=== PATIENT | female | born 2005 | race Caucasian/White ===

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

== ENCOUNTER 2024-02-14 10:39 | Observation (INO) | payer OTHER ==
[~2024-02-14] VITALS: Ht 162.6 cm; Wt 48.6 kg
[2024-02-14] MEDS ORDERED: ONDA-284 PO (10:49)
[2024-02-14] MEDS ORDERED: ARIP1TAB4 PO (10:49)
[2024-02-14] MEDS ORDERED: ACET1TAB55 PO (10:49)
[2024-02-14] MEDS ORDERED: BUPR150T12 PO (10:49)
[2024-02-14] MEDS ORDERED: LEXA1TAB2 PO (10:49)
[2024-02-14 11:51] LABS: BASO % 0.4 % (0.0-1.0); EOS # 0.1 10^3/uL (0.0-0.5); EOS % 1.1 % (0.0-3.0); HEMATOCRIT 41.2 % (36.0-47.0); LYMPH % 17.2 % (24.0-44.0); MEAN CORPUSCULAR HEMOGLOBIN 31.3 pg (27.0-33.0); MEAN CORPUSCULAR VOLUME 92.2 fl (80.0-96.0); MONO # 0.2 10^3/uL (0.0-0.8); MONO % 4.1 % (2.0-8.0); NEUTROPHILS # 4.4 10^3/uL (1.5-8.5); PLATELET COUNT, AUTOMATED 192 10^3/uL (150-450); RED BLOOD COUNT 4.47 10^6/uL (4.00-5.40); WHITE BLOOD COUNT 5.7 10^3/uL (4.0-10.0)
[2024-02-14] MEDS: NS 1,000 ML IV ONE (12:05)
[2024-02-14 12:35] LABS: HCG, SERUM QUALITATIVE NEGATIVE (NEGATIVE)
[2024-02-14 12:48] LABS: BLOOD UREA NITROGEN 62 MG/DL (9-23); CALCIUM LEVEL 9.3 MG/DL (8.5-10.1); CARBON DIOXIDE LEVEL 21 MMOL/L (20-31); CHLORIDE LEVEL 105 MMOL/L (98-107); CPK CREATINE PHOSPHOKINASE 34 U/L (34-145); CREATININE FOR GFR 6.12 MG/DL (0.55-1.30); GLUCOSE, FASTING 78 MG/DL (60-100); POTASSIUM SERUM 4.4 MMOL/L (3.5-5.1); SODIUM LEVEL 137 MMOL/L (136-145)
[2024-02-14] MEDS ORDERED: NORE0.353 PO (13:42)
[2024-02-14] MEDS ORDERED: HOME MED LIST COMPLETE! XX SCH (13:45)
[2024-02-14] MEDS: ACETAMINOPHEN TAB 650MG DOSE (2X325MG) PO ONE (14:01)
[2024-02-14 14:45] LABS: Trichomonas vaginalis (AMP) NOT DETECTED (NEGATIVE)
[2024-02-14 15:09] LABS: GC DNA AMPLIFICATION NEGATIVE (NEGATIVE)
[2024-02-14 20:41] LABS: CREATININE,RANDOM URINE 101.7 MG/DL
[2024-02-14 21:00] VITALS: BP 128/78; TEMP 99; O2SAT 100
[2024-02-14] MEDS: HEPARIN SOD (PORCINE) 5000UNITS/ML 1ML VIAL/SYRINGE SC SCH (21:12)
[2024-02-14] MEDS: ACETAMINOPHEN TAB 650MG DOSE (2X325MG) PO PRN (21:13)
[2024-02-14] MEDS: NS 1,000 ML IV SCH (21:16)
[2024-02-15 04:30] VITALS: BP 109/61; TEMP 99; O2SAT 100
[2024-02-15 06:26] LABS: HEMATOCRIT 37.5 % (36.0-47.0); HEMOGLOBIN 12.7 g/dl (12.0-15.5); MEAN CORPUSCULAR HEMOGLOBIN 31.8 pg (27.0-33.0); MEAN CORPUSCULAR HGB CONC 33.9 g/dl (32.0-36.5); MEAN CORPUSCULAR VOLUME 93.8 fl (80.0-96.0); PLATELET COUNT, AUTOMATED 150 10^3/uL (150-450); WHITE BLOOD COUNT 4.9 10^3/uL (4.0-10.0)
[2024-02-15 06:50] LABS: BLOOD UREA NITROGEN 47 MG/DL (9-23); CALCIUM LEVEL 7.9 MG/DL (8.5-10.1); CARBON DIOXIDE LEVEL 22 MMOL/L (20-31); CHLORIDE LEVEL 112 MMOL/L (98-107); CREATININE FOR GFR 4.01 MG/DL (0.55-1.30); GLUCOSE, FASTING 92 MG/DL (60-100); POTASSIUM SERUM 4.7 MMOL/L (3.5-5.1); SODIUM LEVEL 141 MMOL/L (136-145)
[2024-02-15 07:44] VITALS: BP 121/76; TEMP 98.3; O2SAT 99
[2024-02-15] MEDS: buPROPion **XL** TABLET 150MG (WELLBUTRIN XL) PO SCH (08:39)
[2024-02-15] MEDS: ARIPiprazole 2 MG TAB PO SCH (08:40)
[2024-02-15] MEDS: ESCITALOPRAM OXALATE 10 MG TAB (LEXAPRO) PO SCH (08:40)
[2024-02-15 14:00] VITALS: BP 121/83; TEMP 98.4; O2SAT 100
[2024-02-15] MEDS ORDERED: FAMOTIDINE 20 MG TAB PO PRN (19:50)
[2024-02-15 20:00] VITALS: BP 144/95; TEMP 99; O2SAT 100
[2024-02-15] MEDS ORDERED: PILL CUTTER 1 EACH XX PRN (20:00)
[2024-02-15 22:19] VITALS: BP 130/85
[2024-02-16 04:00] VITALS: BP 120/72; TEMP 98.2; O2SAT 99
[2024-02-16 06:42] LABS: HEMATOCRIT 35.4 % (36.0-47.0); HEMOGLOBIN 11.5 g/dl (12.0-15.5); MEAN CORPUSCULAR HGB CONC 32.5 g/dl (32.0-36.5); MEAN CORPUSCULAR VOLUME 95.4 fl (80.0-96.0); PLATELET COUNT, AUTOMATED 157 10^3/uL (150-450); RED BLOOD COUNT 3.71 10^6/uL (4.00-5.40); WHITE BLOOD COUNT 5.1 10^3/uL (4.0-10.0)
[2024-02-16 07:11] LABS: ALBUMIN 2.7 G/DL (3.2-5.2); BLOOD UREA NITROGEN 20 MG/DL (9-23); CALCIUM LEVEL 8.3 MG/DL (8.5-10.1); CARBON DIOXIDE LEVEL 21 MMOL/L (20-31); CHLORIDE LEVEL 116 MMOL/L (98-107); CREATININE FOR GFR 2.19 MG/DL (0.55-1.30); GLUCOSE, FASTING 80 MG/DL (60-100); POTASSIUM SERUM 4.7 MMOL/L (3.5-5.1); SODIUM LEVEL 145 MMOL/L (136-145)
[2024-02-16 08:00] VITALS: BP 121/71; TEMP 98.5; O2SAT 100
[2024-02-16 12:00] VITALS: BP 128/82; TEMP 98.1; O2SAT 98
[2024-02-16] MEDS: NS 0.45% 1,000 ML IV SCH (12:10)
[2024-02-16 16:00] VITALS: BP 101/68; TEMP 98.3; O2SAT 100
[2024-02-16 20:00] VITALS: BP 112/62; TEMP 98.5; O2SAT 99
[2024-02-17 06:19] VITALS: BP 102/59; TEMP 99; O2SAT 97
[2024-02-17] MEDS: ONDANSETRON 4MG ORAL DISINTEGRATING TAB PO PRN (07:32)
[2024-02-17 10:55] LABS: BLOOD UREA NITROGEN 9 MG/DL (9-23); CALCIUM LEVEL 9.3 MG/DL (8.5-10.1); CARBON DIOXIDE LEVEL 22 MMOL/L (20-31); CHLORIDE LEVEL 111 MMOL/L (98-107); CREATININE FOR GFR 1.25 MG/DL (0.55-1.30); GLUCOSE, FASTING 88 MG/DL (60-100); POTASSIUM SERUM 4.2 MMOL/L (3.5-5.1); SODIUM LEVEL 140 MMOL/L (136-145)
[2024-02-17 11:21] LABS: HEMATOCRIT 39.6 % (36.0-47.0); HEMOGLOBIN 13.3 g/dl (12.0-15.5); MEAN CORPUSCULAR HGB CONC 33.6 g/dl (32.0-36.5); MEAN CORPUSCULAR VOLUME 92.3 fl (80.0-96.0); PLATELET COUNT, AUTOMATED 154 10^3/uL (150-450); RED BLOOD COUNT 4.29 10^6/uL (4.00-5.40)
[2024-02-17 13:00] VITALS: BP 98/65; TEMP 98.8; O2SAT 97
== END 2024-02-17 13:27 | disposition home or self-care (01) ==
LOC: M ED 10:39 → M ED INP 10:40 → M PED 20:55
PROVIDERS: ADMIT Family Medicine; ATTEND Family Medicine
DX: N17.9 Acute kidney failure, unspecified (principal); F41.9 Anxiety disorder, unspecified; F32.A Depression, unspecified; R10.2 Pelvic and perineal pain; R31.9 Hematuria, unspecified; R11.2 Nausea with vomiting, unspecified; N05.9 Unspecified nephritic syndrome with unspecified morphologic changes; Z83.3 Family history of diabetes mellitus; Z82.0 Family history of epilepsy and other diseases of the nervous system; Z88.0 Allergy status to penicillin; Z79.899 Other long term (current) drug therapy

== ENCOUNTER → 2024-03-05 | Outpatient (REF) | payer OTHER ==
[~2024-03-05] MED LIST: ACET1TAB55 PO; ARIP1TAB4 PO; BUPR150T12 PO; LEXA1TAB2 PO; NORE0.353 PO; ONDA-284 PO
== END ==
LOC: M LAB REF 16:55
PROVIDERS: ATTEND Pediatrics
DX: J02.9 Acute pharyngitis, unspecified (principal)

== ENCOUNTER → 2024-12-07 | Outpatient (CLI) | payer OTHER | LOC: M SOG 12:23 | PROVIDERS: ATTEND Physician Assistant | DX: M54.50 Low back pain, unspecified (principal) ==

== ENCOUNTER → 2025-01-28 | Outpatient (CLI) | payer OTHER | LOC: M SOG 07:07 | PROVIDERS: ATTEND Physician Assistant | DX: M54.50 Low back pain, unspecified (principal) ==